=== PATIENT | male | born 1985 | race Asian ===

== ENCOUNTER 2016-06-23 14:39 | Emergency (ER) | payer OTHER ==
[2016-06-23] MEDS ORDERED: DIPHTH,PERTUSS(ACELL),TET VAC 0.5 ML VIAL IM V ONE (15:47)
== END 2016-06-23 17:05 | disposition home or self-care (01) ==
LOC: ED 14:39
DX: S01.312A Laceration without foreign body of left ear, initial encounter (principal); Z23 Encounter for immunization; W08.XXXA Fall from other furniture, initial encounter; Y93.H3 Activity, building and construction; Y92.69 Other specified industrial and construction area as the place of occurrence of the external cause; Y99.0 Civilian activity done for income or pay